=== PATIENT | female | born 1980 | race Caucasian/White ===

== ENCOUNTER → 2017-03-02 | Outpatient (CLI) | payer BC ==
[~2017-03-02] MED LIST: ALDACTONE25 MG PO; CLARITIN10 MG PO; FLONASE 50 MCG/16 GM NOSE
== END ==
LOC: GRAD 13:11
DX: C81.28 Mixed cellularity Hodgkin lymphoma, lymph nodes of multiple sites (principal); E04.1 Nontoxic single thyroid nodule

== ENCOUNTER → 2017-03-29 | Outpatient (CLI) | payer BC | END | disposition disaster alternative care site (69) | LOC: GPOC 03-27 13:00 | PROC: 0G9G3ZX Drainage of Left Thyroid Gland Lobe, Percutaneous Approach, Diagnostic (ICD-10-PCS; principal; 2017-03-29) | DX: E04.1 Nontoxic single thyroid nodule (principal) ==